=== PATIENT | female | born 1955 | race Caucasian/White ===

== ENCOUNTER 2018-08-18 08:19 | Day surgery (SDC) | payer OTHER, SELFPAY ==
[2018-08-18] VITALS (7 sets, daily range): BP systolic 96–130; BP diastolic 59–82; PULSE 57–63; RESP 12–20; TEMP 36.1–36.9; O2SAT 93–100; BMI 38.0
[2018-08-18] MEDS: SODIUM CHLORIDE 0.9% 1,000 ML 84 ML IV (09:14)
--- NOTE | 2018-08-18 09:43 | PM.HP.1 ---
History of Present Illness Date Patient Seen: 08/18/18 Time Patient Seen: 09:44 Chief complaint: [id number] Narrative: Wonderful 63-year-old lady who is well known to me from prior visits at a different facility. She presents today for screening colonoscopy. Her last study was in 2010 and she remembers it being normal. We do not have the operative report here today. Sully has a history of having had gastric bypass surgery many years ago. She denies any problems or symptoms related to the function of her GI tract. She reports that she has in her usual state of health and needs this study as part of the Health maintenance program. Patient History Medical History Anemia (Acute) Asthma due to environmental allergies (Acute) DVT (deep venous thrombosis) (Acute) GERD (gastroesophageal reflux disease) (Acute) Hypertension (Acute) Hypothyroidism (Acute) Sleep apnea (Acute) [place] allergy (Acute) Meds Home Medications Medication Instructions Recorded Confirmed Type amlodipine [Norvasc] 5 mg PO QDAY #90 10/04/12 08/18/18 Rx losartan [Cozaar] 25 mg PO QDAY #90 10/04/12 08/18/18 Rx pdylebij-kdk-QZ-lycopen-lutein 1 tab PO DAILY #0 10/04/12 08/18/18 History [Centrum Silver] ferrous sulfate 325 mg PO DAILY #0 10/05/12 08/18/18 History vitamin B complex 1 cap PO DAILY #0 10/05/12 08/18/18 History escitalopram oxalate 10 mg PO DAILY 08/18/18 08/18/18 History levothyroxine [Synthroid] 75 mcg PO DAILY 08/18/18 08/18/18 History Allergies Allergy/AdvReac Type Severity Reaction Status Date / Time IRISH INHIBITOR Allergy Unknown Cough Uncoded 10/06/17 12:24 From LOVENOX Allergy Unknown RASH Uncoded 10/06/17 12:24 Review of Systems Review of Systems All systems reviewed & are unremarkable except as noted in HPI and below Exam Vital Signs (past 8 hours): - 08/18/18 09:09 Temperature 97.2 F L Pulse Rate 57 L Respiratory Rate 12 Blood Pressure 130/79 Pulse Oximetry 99 Oxygen Delivery Method Room Air Narrative Exam Narrative: Delightful lady in no obvious distress HEENT: Normocephalic and atraumatic, pupils equal round reactive to light accommodation with anicteric sclera Lungs: Clear bilaterally Heart: Regular rate and rhythm Abdomen: Soft, nontender, active bowel sounds Extremities: Warm and well perfused and without edema. Assessment & Plan Assessment & Plan narrative: 63-year-old lady here for screening colonoscopy. We discussed the risks and benefits of the procedure the patient expressed a desire to complete it today.
[2018-08-18] MEDS: MIDAZOLAM 5 MG/5 ML VIAL IV (10:01)
[2018-08-18] MEDS: fentaNYL 250 MCG/5 ML INJ IV (10:04)
--- NOTE | 2018-08-18 10:10 | PM.HP.1 ---
History of Present Illness Chief complaint: [id number] Narrative: Wonderful 63-year-old lady who is well known to me from prior visits at a different facility. She presents today for screening colonoscopy. Her last study was in 2010 and she remembers it being normal. We do not have the operative report here today. Sully has a history of having had gastric bypass surgery many years ago. She denies any problems or symptoms related to the function of her GI tract. She reports that she has in her usual state of health and needs this study as part of the Health maintenance program. Patient History Medical History Anemia (Acute) Asthma due to environmental allergies (Acute) DVT (deep venous thrombosis) (Acute) GERD (gastroesophageal reflux disease) (Acute) Hypertension (Acute) Hypothyroidism (Acute) Sleep apnea (Acute) [place] allergy (Acute) Meds Home Medications Medication Instructions Recorded Confirmed Type amlodipine [Norvasc] 5 mg PO QDAY #90 10/04/12 08/18/18 Rx losartan [Cozaar] 25 mg PO QDAY #90 10/04/12 08/18/18 Rx ckrtoipf-txa-FZ-lycopen-lutein 1 tab PO DAILY #0 10/04/12 08/18/18 History [Centrum Silver] ferrous sulfate 325 mg PO DAILY #0 10/05/12 08/18/18 History vitamin B complex 1 cap PO DAILY #0 10/05/12 08/18/18 History escitalopram oxalate 10 mg PO DAILY 08/18/18 08/18/18 History levothyroxine [Synthroid] 75 mcg PO DAILY 08/18/18 08/18/18 History Allergies Allergy/AdvReac Type Severity Reaction Status Date / Time IRISH INHIBITOR Allergy Unknown Cough Uncoded 10/06/17 12:24 From LOVENOX Allergy Unknown RASH Uncoded 10/06/17 12:24 Exam Vital Signs (past 8 hours): - 08/18/18 09:09 Temperature 97.2 F L Pulse Rate 57 L Respiratory Rate 12 Blood Pressure 130/79 Pulse Oximetry 99 Oxygen Delivery Method Room Air
--- NOTE | 2018-08-18 10:10 | PM.OP.1 ---
Operative Date/Time/Diagnoses Date of procedure: 08/18/18 Time of procedure: 10:10 Pre-op diagnosis: Screening Post-op diagnosis: same Procedure & Clinicians Procedure: Colonoscopy to the cecum Same procedure as scheduled: Yes Indications: Last colonoscopy 2010 Surgeon: Rand Hurley Anesthesia Type: Sedation (Versed 5 mg; fentanyl 175 mcg) Operative Notes Findings: 1. Excellent prep 2. No polyps or mass lesions 3. No AV malformations 4. Diverticulosis from 15-25 cm. Few very small pockets. 5. Grade 1-2 internal hemorrhoids Closure Type: not applicable Specimen(s): none sent Procedure in detail: After obtaining informed consent, the patient was brought to the GI suite and placed in the left lateral decubitus position on the examination table. After placement of appropriate monitors, the patient was given incremental doses of Versed and Fentanyl until an appropriate level of sedation was achieved. A time out was held per SCOAP protocol. A digital rectal examination was performed and did not reveal any masses or obstructing lesions. The colonoscope was gently passed into the patient's anus and the entire colon navigated to the level of the cecum with minimal difficulty. Once in the cecum, the scope was withdrawn being sure to go before and beyond all mucosal folds and prominences and get an excellent examination. The findings are noted above. At the level of the rectal vault, the scope was retroflexed and the internal anal canal was examined. The scope was straightened and air aspirated from the colon. The instrument was removed from the patient's body and the procedure was concluded. The patient was allowed to awaken from sedation without difficulty and taken to the post-anesthesia care unit in good condition. Total sedation time 19 min Total withdrawal time 9 min Complications: none Condition: stable Disposition: PACU Plan for aftercare: 1. Discharge to home 2. Plan for next colonoscopy in 10 years or as clinically indicated
== END 2018-08-18 11:03 | disposition home or self-care (01) ==
PROVIDERS: PCP Physician Assistant; Visit Provider Surgery
PROC: 0DJD8ZZ Inspection of Lower Intestinal Tract, Via Natural or Artificial Opening Endoscopic (ICD-10-PCS; CPT 45378; principal; 2018-08-18 09:15)
DX: Z12.11 Encounter for screening for malignant neoplasm of colon (principal); K57.30 Diverticulosis of large intestine without perforation or abscess without bleeding; K64.1 Second degree hemorrhoids; D64.9 Anemia, unspecified; J45.909 Unspecified asthma, uncomplicated; I10 Essential (primary) hypertension; E03.9 Hypothyroidism, unspecified; G47.30 Sleep apnea, unspecified
CPT/HCPCS: 45378; 99152; J2250; J3010